=== PATIENT | female | born 1945 | race Caucasian/White ===

== ENCOUNTER 2019-08-03 07:39 | Day surgery (SDC) | payer MEDICARE, SELFPAY ==
--- NOTE | 2019-07-30 19:00 | PCM.HP.BLA ---
History and Physical Date of Admission: 08/03/19 Me[facility] Cortes 1945 ? ? REFERRING PHYSICIAN: Ольга Hernandez MD ? CHIEF COMPLAINT: New finding of right breast cancer ? HPI: The patient is a 73 year old female presents new diagnosis of right breast cancer. She was found to have abnormal right breast radiographs. She denies palpable breast masses Mother had breast cancer at age 72, then developed another breast cancer years later, still alive Paternal grandmother had breast cancer There is no ovarian cancer in family known She denies previous breast biopsies. She admits that she does not do SBE Denies pain Denies nipple discharge. ? Mammograms 07/14/19 IMPRESSION: INCOMPLETE: NEEDS ADDITIONAL IMAGING EVALUATION The nodule in the right breast lower outer aspect posterior depth is indeterminate. ?An ultrasound is recommended. The asymmetry in the right breast central to the nipple middle depth is indeterminate ? US 07/14/19 There is a benign normal lymph node in the right axilla. IMPRESSION: HIGHLY SUGGESTIVE OF MALIGNANCY - APPROPRIATE ACTION SHOULD BE TAKEN The 1.2 cm x 0.9 cm lesion in the right breast is highly suggestive of malignancy. ?An ultrasound guided biopsy is recommended ? US right breast needle core biopsy 07/14/19 Right breast, ultrasound-guided mammotome biopsy - Invasive mammary carcinoma, provisional histologic grade 2. Estrogen Receptor (ER) ? ?Positive (>95%) Progesterone Receptor (PgR) ? ?Positive (>95%) HER2 (ERBB2) IMMUNOHISTOCHEMISTRY ASSAY Interpretation: NEGATIVE for HER2 (ERBB2) Expression? ? ? PAST MEDICAL HISTORY Diverticulosis of colon (without mention of hemorrhage) ? Osteoporosis, unspecified ? Scoliosis ? Unspecified essential hypertension ? white coat HTN past several years; no meds needed ? PAST SURGICAL HISTORY COLONOSCOP W/ OR W/O BRSH SPEC ? 03/16/2009 COLONOSCOP W/ OR W/O BRSH SPEC ? 05/25/2019 PAST SURGICAL HISTORY OF ? 11/29/1995 ? endometrial biopsy PAST SURGICAL HISTORY OF ? 11/29/1999 ? Rectal prolapse repair--laparoscopic Wells Repair (Dr. Hahn) PAST SURGICAL HISTORY OF ? 07/21/2014 ? Robotic laparoscopic ventral rectopexy that was converted to an open procedure with lysis of adhesions, small bowel resection, and suture rectopexy via open technique TONSILLECTOMY HX ? PAST INJURIES Denies head injuries, denies history of fractures ? ? Current Outpatient Medications: lisinopril (ZESTRIL, PRINIVIL) 5 mg tablet Take 1 tablet by mouth once daily. atorvastatin (LIPITOR) 10 mg tablet Take 1 tablet by mouth daily at bedtime. For cholesterol. ergocalciferol(VITAMIN D 400 UNIT TAB) Take one(1) tablet daily. CALCIUM 600 + D(3) 600 MG-200 UNIT TAB Take one(1) tablet two(2) times daily. ? ? ALLERGIES: Patient has no known allergies. ? PERSONAL HISTORY: Social History Socioeconomic History Marital status: Spouse name: Stuart Number of children: 2 Occupational History Occupation: TEACHER retired Employer: [employer] Denies TOB use FAMILY HISTORY ? Hypertension Father ? ? Cancer Father ?? colon ? Breast Cancer Mother ? ? ? REVIEW OF SYSTEMS: General - denies fevers, denies anorexia, denies weight loss Cardiovascular - denies chest pain, denies history of PR Pulmonary - denies shortness of breath, denies coughing up blood Gastrointestinal - denies abdominal pain, denies hematemesis, denies blood in stools Neurological - denies seizures, denies chronic numbness/weakness of extremities, denies chronic headaches Genitourinary - denies burning with urination, denies blood in urine Hematological - denies spontaneous/prolonged bleeding, had blood transfusions after delivery Skin - denies nonhealing skin wounds Musculoskeletal - has occasional low back pain Endocrine - denies diabetes, no thyroid problems Psychological ? denies hallucinations Obstetrical: menarche age 13, , first age 28, denies breast feeding, BCP use age 22 for about 8 y, tubes tied, menoapuse age 50, denies HRT use ? PHYSICAL EXAMINATION: General: The patient is 73 year old female, well nourished, well hydrated in no acute distress. The patient is oriented to time, place, and person. VITALS: Blood pressure 134/78, pulse 110, temperature 36.7 ?C (98 ?F), weight 56.3 kg (124 lb 3.2 oz), SpO2 99 %. Body mass index is 24.46 kg/m?. Head ? Normocephalic. EOM intact with sclera clear and no icterus noted. Wearing glasses. Mouth with mucus membranes moist. Neck - supple with no jugular venous distention noted. Trachea is midline. No carotid bruits noted. No thyroid enlargement or thyroid nodules detected. No masses noted. Chest/breast ? no asymmetry of breasts noted, no suspicious skin lesions noted - healed biopsy site with no evidence of infection - slight ecchymoses in area, no nipple discharge and both nipples everted, no breast masses noted Lungs ? clear to auscultation. Normal breath sounds. No rales/rhonchi/wheezing noted. No labored breathing noted, such as retractions. No cough heard. Heart ? normal S1 and S2 auscultated. No rubs/clicks/murmurs noted. Regular rate. Abdomen ? soft and benign. Normal bowel sounds No abdominal bruits noted. Extremities ? no calf tenderness noted. No pitting edema noted. Skin ? normal skin integrity. Lymph ? no cervical adenopathy detected, no supraclavicular adenopathy detected, no axillary adenopathy detected Neurological ? gait normal, no focal deficits noted Psych ? calm and appropriate RADIOLOGIC STUDIES: As Noted ? ? IMPRESSION: newly diagnosed right breast cancer ? PLAN: I have discussed the above with the patient and her who is present with her I have explained treatment of breast cancer - surgical and briefly chemo- and radiation therapy. I have offered options for surgical treatment - lumpectomy (followed by radiation therapy) or mastectomy. I have also explained need for sentinel lymph node biopsy via radioactive and blue dye. I have given the patient options for initial surgical treatment. I have told the patient the risks of surgery, including but not limited to: infection, bleeding, scar tissue, seroma and persistent seroma, lymph leak, injury to any blood vessels, injury to any nerves (particularly the long thoracic, the thoracodorsal, and the second intercostal brachial and the resultant sequelae), lymphedema, cosmetic deformity, dysthesias, wound infections, further surgery (especially if margins are not clear), complications of anesthesia, etc. ? the patient understands. The patient wishes to proceed with right breast lumpectomy. Will also undergo right axillary sentinel lymph node biopsy I have answered all the patient?s questions at this point to her satisfaction and she has no further questions. Return to Clinic: The patient is instructed to follow-up with me after the procedure.
--- NOTE | 2019-08-03 | IMM_PTH ---
PATIENT: CAROLYN WEST LOC: [facility] [place] U#:[id number] AGE/SX: 73/F ROOM: RE08/03/[address]: Dr. Flaca Cleveland MD : 1945 BED: DIS: 08/03/2019 SPEC #: [id number] RECD: 08/05/19 12:38 STATUS: SOUNanda REQ #: [id number] CRISTÓBAL: 08/03/19 00:[address]: Flaca Cleveland DEPT: IMMUNOHISTOCHEMISTRY RECD BY: Ya Talbert ENTERED: 08/05/19 12:40 SP TYPE: IMMUNO OTHR DR: Dr. Ольга Hernandez MD Tissues: A - Axillary lymph node, NOS B - Right breast, NOS Procedures: Synapto (add) CK8 (initial) E-CAD (initial) CD56 (add) CHROMO (add) CK8 (add) Pankeratin (add) NSE (add) PHYSICIAN & INSTITUTION [place] [id number] SPECIMEN INFORMATION: Tissue Source: A - Right axillary sentinel lymph node, B - Right breast Clinical Info: Right breast cancer Specimen Number: [id number] A1, A2, B8 CPT code: 05691 x2, 55495 x7 METHODOLOGY: Deparaffinized sections of prefer/formalin-fixed tissue or PAP/DQ stained slides are incubated with monoclonal/polyclonal antibodies/oligonucleotide probes. Localization is made via biotin free immunoperoxidase method. Appropriate controls are performed and reacted as expected. Results on target cell population are indicated in the following table: RESULTS: ANTIBODY / CLONE RESULT Block A1 CK8 (50cvdkL76) negative AE1-3 (AE1/AE3/PCK26) negative Block A2 CK8 (12hjlbM68) negative AE1-3 (AE1/AE3/PCK26) negative Block B8 E-Cad (ECH-6) positive NSE Neuron Specific Enolase positive Chromo (LK2H10) negative CD56 (123C3.D5) negative Synapto (polyclonal) negative These tests were developed and their performance characteristics determined by [facility]. They may not have been cleared or approved by the U.S. Food and Drug Administration. The FDA has determined that such clearance or approval is not necessary. The above immunohistochemical/dualISH markers are ordered and reviewed by the Pathologist. INTERPRETATION: A. Right axillary sentinel lymph nodes, biopsy: Five out of five lymph nodes negative for carcinoma. B. Right breast, lumpectomy: Invasive ductal carcinoma. AM:raj 08/06/19 Case has been reviewed in consultation with Dr. June who concurs with the above diagnosis. IDC:SJ
--- NOTE | 2019-08-03 | AXNB_PTH ---
PATIENT: CAROLYN WEST LOC: [facility] [place] U#:[id number] AGE/SX: 73/F ROOM: RE08/03/[address]: Dr. Flaca Cleveland MD : 1945 BED: DIS: 08/03/2019 SPEC #: [id number] RECD: 08/03/19 11:28 STATUS: NORTH REQ #: [id number] CRISTÓBAL: 08/03/19 00:[address]: Flaca Cleveland DEPT: SURGICAL PATHOLOGY RECD BY: Ya Talbert ENTERED: 08/03/19 12:13 SP TYPE: AX NODE BX OTHR DR: Dr. Ольга Hernandez MD Tissues: A - Axillary lymph node, NOS B - Right breast, NOS Procedures: Frozen Section (charge) Frozen Section Add'l ([facility]) Surgery Specimen Level V Surgery Specimen Level HEADER OPERATION: Right breast lumpectomy via wire localization, sentinel lymph node biopsy PRE-OP DIAGNOSIS: Right breast cancer TISSUE SUBMITTED: A - Right breast sentinel lymph node sent at 1119, B - Right breast lumpectomy with wire, short suture - superior, long suture - lateral, two short sutures - posterior FROZEN SECTION DIAGNOSIS A. Right axillary sentinel lymph nodes, biopsy: Four out of four lymph nodes negative for carcinoma. AM:raj 08/03/19 MICROSCOPIC DIAGNOSIS A. Right axillary sentinel lymph nodes, biopsy: Five out of five lymph nodes negative for carcinoma. B. Right breast, lumpectomy: Invasive ductal carcinoma. See cancer checklist below. AM:raj 08/05/19 COMMENT INVASIVE BREAST CANCER SUMMARY: Specimen: Partial breast Procedure: Excision with wire guidance Specimen integrity: Single intact specimen. Specimen size: 7 x 7 x 2 cm Specimen laterality: Right Tumor size: 1.5 x 1 x 1 cm Tumor focality: Single focus of invasive carcinoma Macroscopic and Microscopic extent of tumor: Skin: Not present Nipple: Not present Skeletal muscle: Not present Histologic type of invasive carcinoma: Invasive ductal carcinoma Histologic Grade (B[place]iv[place] grade): Glandular/tubular differentiation score: 3 Nuclear pleomorphism score: 3 Mitotic count score: 1 Overall grade: Grade 2 (total score of 7) Margins: Uninvolved by invasive carcinoma. Distance from closest (inferior) margin - 5 mm Lymph-Vascular invasion: Not identified Dermal lymph-vascular invasion: Not applicable Ductal carcinoma in situ (DCIS): Not present Lobular carcinoma in situ (LCIS): Not present Lymph nodes: Number of sentinel lymph nodes examined: 5 Total number of lymph nodes examined (sentinel and nonsentinel): 5 No evidence of macrometastases, micrometastases or isolated tumor cells. See specimen A. Microcalcifications: Present in neoplastic tissue. Treatment effect: Unknown Additional pathologic findings: Changes consistent with previous biopsy site and focal usual intraductal hyperplasia without atypia. Ancillary studies: Previously performed on same tumor ([id number] [facility]) ER: positive (>95%) AR: positive (>95%) Her2 tamiko: Negative (IHC) Her2 by dual TREY: Not performed PATHOLOGIC STAGE: pT1c N0 Mx The above summary is in compliance with [employer] (CAP) Cancer Protocols Checklist and [place] Joint Committee on Cancer (AJCC), Staging Manual, 8th Ed. Case has been reviewed in consultation with Dr. June who concurs with the above diagnosis. IDC:SJ MICROSCOPIC DESCRIPTION Slides are reviewed. GROSS DESCRIPTION A - Received fresh for frozen section diagnosis labeled with the patient's name is a specimen designated right breast sentinel lymph node. The specimen consists of two pieces of yellow adipose tissue measuring in aggregate 4 x 3 x 0.7 cm. Five nodules, possible lymph nodes are identified measuring 0.2 to 2 cm in greatest dimension. The lymph nodes are submitted in entirety in two cassettes for frozen section diagnosis as follows: 1 - one lymph node bisected, 2 - four possible lymph nodes. / AM:raj 08/03/19 B - Received fresh for intraoperative consultation labeled with the patient's name and designated right breast lumpectomy with wire. The specimen consists of a piece of fibroadipose tissue with needle localization measuring 7 x 7 x 2 cm. The specimen is oriented by suture as follows: short suture - superior, long suture - lateral, two short sutures - posterior. The specimen is inked as follows: anterior - yellow, posterior - black, superior - blue, inferior - green, medial - red and lateral - orange. Serial sections reveal a dennis, indurated mass measuring 1.5 x 1 x 1 cm. This mass is 0.5 cm away from the closest inferior margin. This information is conveyed to the surgeon intraoperatively. Sections of the rest of the specimen reveal dennis-yellow adipose cut surfaces mixed with dennis-white fibrous areas. Scientific Research Associate sections are submitted in 12 cassettes as follows: 1 - perpendicular anterior, posterior and inferior margins, 2 - perpendicular medial, lateral and superior margins, 3-6 - entire tumor, 7-9 - provider service representative sections adjacent to the tumor, 10 - provider service representative section away from the tumor. / SJ:raj 08/04/19 TC:0 CPT: 68074, 59692, 78874, 29442, 86964
--- NOTE | 2019-08-03 08:00 | NM_ITS ---
PROCEDURE: NUCLEAR MEDICINE Injection [place] Node - RIGHT breast(s). REASON FOR EXAM: Female, 73 years old. Right breast cancer. TECHNIQUE: [place] node localization using radionuclide methods of the RIGHT breast(s) was performed following subcutaneous administration of 1.1 mCi of of sulfur colloid Tc-99m. FINDINGS: 1.1 mCi of technetium labeled sulfur colloid was injected subcutaneously in 4 equal aliquots at the biopsy site. NM/Lymph Node Injection Only IMPRESSION: Subcutaneous injection of 1.1 mCi of technetium labeled sulfur colloid for sentinel node imaging. Electronically Signed: Feliberto Mcdonald, at 8:43 EDT , Service support ,
[2019-08-03 08:16] VITALS: BP 168/89; PULSE 73; RESP 18; TEMP 37.1; O2SAT 95; BMI 23.6
[2019-08-03] MEDS: Lactated Ringers 1,000 ML 75 ML IV ×2 (08:48→13:09)
--- NOTE | 2019-08-03 09:00 | BI_ITS ---
SURGICAL BREAST SPECIMEN RADIOGRAPH CLINICAL: Document presence of calcifications in biopsy specimen. FINDINGS: Specimen shows presence of calcifications. Electronically Signed: Feliberto Mcdonald, at 12:54 EDT , Service support , BI/Breast Biopsy Specimen
[2019-08-03] MEDS: Cefazolin 2 GM in 0.9% Normal Saline 100 ML IV (10:19)
--- NOTE | 2019-08-03 10:28 | DCINST_ITS ---
Discharge Diet: No Restrictions Discharge Activity: Return to Normal Activity, May not drive while taking narcotic pain medications. Lifting Restrictions: no lifting with right upper extremity greater than 10 pounds for 4 weeks Call your doctor if your incision/area has: Continuous Slow Oozing, Foul Smelling Discharge Call your doctor if you observe: Fever of 101 or Higher Additional Dressing/Incision Instructions:: Leave dressings in place. May get wet in shower. Do not soak - no tub baths/swimming. Wear supportive bra during the day. may apply ice to area for comfort Allergies/Adverse Reactions: Allergies No Known Allergies Allergy (Verified 07/27/19 13:53) Medications to take at Discharge Atorvastatin Calcium [Lipitor] 10 mg PO QHS 07/27/19 Calcium Carbonate/Vitamin D3 [Calcium 600 + Vit D Tablet] 1 ea PO BID 07/27/19 Cholecalciferol (Vitamin D3) [Vitamin D3] 1,000 unit PO DAILY 07/27/19 Lisinopril 5 mg PO DAILY 07/27/19 Hydrocodone Bitart/Apap 5-325 [[place] 5MG-325MG] 1 tab PO Q8H PRN PRN 5 Days #15 tab 08/03/19 Multivit-Min/Iron/Folic/Lutein [Multivitamin Women 50 Plus Tab] 1 ea PO DAILY 08/03/19 The following prescriptions were given: Hydrocodone Bitart/Apap 5-325 [[place] 5MG-325MG] 1 tab PO Q8H PRN PRN 5 Days #15 tab PRN Reason: Pain Prescription Printed Primary Care Physician: Ольга Hernandez MD [Primary Care Provider] - Please Follow Up With: Flaca Cleveland MD - call When: to be seen in 5-7 days, please call for date and time, thank you
--- NOTE | 2019-08-03 10:31 | OP.PCM_ITS ---
Report of Operation Date of Procedure: 08/03/19 Pre-Operative Diagnosis: right breast cancer Post-Operative Diagnosis: right breast cancer - central location Surgery/Procedure Performed:: right breast lumpectomy via wire localization and right axillary sentinel lymph node biopsy via blue dye and radioisotope localization Description of Surgical Findings:: lymph nodes - right axillary - 4 out of 4 negative regasification plant operator: Nohemy Maguire Type of Anesthesia:: General Anesthesiologist: Tristan Betts Specimen's removed: right breast tissue, right axillary sentinel lymph node Drains: none Estimated Blood Loss (mL): 10 ml Fluids Replaced: 700 ml RL Description of Procedure: After informed consent was given, the patient was brought into the Breast Stereotactic Radiology suite. Appropriate time out protocol was followed. She was then placed in the prone position on the [place] stereotactic table. The patient?s right breast was placed in the opening at the head of the table. A voip network technician compression mammogram was then obtained in the CC view. The marker clip that was previously placed was identified. Stereo pictures of the lesion were then taken for XYZ coordinates. The Kopans needle was then positioned where it would be entering into the patient?s breast. The skin at this site was then cleansed with a surgical skin preparation. The skin and subcutaneous tissues at this site were then infiltrated with 1% xylocaine. The Kopans needle was then positioned into the patient?s breast at the proper coordinates of depth. A voip network technician film was obtained which revealed the wire in proper position. The patient was then placed in the supine position and the wire was taped into place. A unilateral mammogram in the CC and MLO view were then taken for use in the OR. The patient tolerated this portion of the procedure well and was brought to the AC awaiting surgery in the OR. The patient was then brought to the Operating Room. Appropriate time out protocol was followed. She was then placed on the operating table in the supine position. A wire had already been placed in the stereotactic biopsy room in the radiology department as described above. The rightt breast with the wire in placed was then prepped with a sterile surgical skin preparation and sterile surgical drapes were placed. 1 cc of lymphozurin diluted 50-50 with normal saline was then injected into the periareolar area and around the biopsy cavity with a 25 g needle. Gentle massage was then done for a few minutes. A skin incision was made in the inferior portion of the hair bearing area of the right axilla. This was after the area was infiltrated with 0.25% marcaine with epinephrine. It was carried through to the subcutaneous tissues using electrocautery. Any hemorrhage was controlled with electrocautery. A Weitlaner retractor was used for increased operative exposure. The Neoprobe was brought into the operative field in a sterile sheath. 10 second count over the tumor site was 275. 10 second count over a neutral position was 0. The blue lymphatic vessels were then followed by blunt dissection until blue colored lymph nodes were identified. This tissue was from the surrounding tissue by blunt dissection and the vascular pedicles ligated with vicryl suture. 10 second count of the tissue was 14. The lymph tissue then forwarded to pathology for frozen section. Pathology revealed 4 out of 4 lymph nodes negative for breast cancer. 10 second count of the axilla was 0 after removal of the blue lymph tissue. Hemostasis was achieved by electrocautery. Keira was applied to the area. The deep tissues were reapproximated using 2-0 vicryl suture. The skin edges were reapproximated with 3-0 vicryl suture in a horizontal mattress fashion and then further closed with running 4-0 monocryl in a subcuticular fashion. The next part of the surgery was the breast lumpectomy. The skin and subcutaneous tissues at the site of the breast lesion was then infiltrated with 0.25% marcaine with epinephrine. A transverse incision that extended to a upper outer quadrant circumareolar incision was made with a 15 blade scalpel. It was carried down through to the subcutaneous tissues. Laterally, it incorporated the original biopsy site. Hemostasis was controlled with electrocautery. The wire was then palpated out and brought into the wound from outside. The breast tissue surrounding the wire was then carefully pal pated out and from the surrounding tissues using electrocautery. The breast tissue, once from the breast, was then forwarded to the radiology department, where a specimen mammogram revealed that the lesion was within the specimen. The breast tissue was then forwarded to pathology for analysis. Pathology review revealed that the closest margin was inferior with a measurement of 5mm. The wound cavity was carefully examined. Of noted, this was a centrally located breast cancer. No further suspicious tissue was palpated or visualized. Hemostasis was carefully controlled with electrocautery. The subdermal tissues were then approximated with vicryl suture. The incision was then reapproximated close using running monocryl suture. Cavilon and steristrips were then placed to reinforce the skin closure. A sterile dressing was then applied. The patient was then brought to the Recovery Room in stable condition. - Complications none noted - Admit VTE Documentation VTE Present on Admission: Yes VTE Mechan Device Prophylaxis: SCD's
[2019-08-03] MEDS: 0.9% Normal Saline (Pres. free 10 ML Vial (11:00)
[2019-08-03] MEDS: Isosulfan Blue 1% 5 ML Vial (11:00)
[2019-08-03 13:00] VITALS: BP 142/89; BP 168/89; PULSE 85; RESP 16; TEMP 36.2; O2SAT 97
[2019-08-03 13:15] VITALS: BP 134/68; BP 168/89; PULSE 77; RESP 16; O2SAT 95
[2019-08-03 13:30] VITALS: BP 129/79; BP 168/89; PULSE 76; RESP 16; O2SAT 95
[2019-08-03 13:45] VITALS: BP 135/79; BP 168/89; PULSE 76; RESP 16; TEMP 36.1; O2SAT 97
[2019-08-03 14:43] VITALS: BP 132/79; BP 168/89; PULSE 77; RESP 16; TEMP 36.2; O2SAT 96
== END 2019-08-03 14:45 | disposition home or self-care (01) ==
LOC: SDC 07:41 → AC 07:44
PROVIDERS: Family Provider Internal Medicine; PCP Internal Medicine; Referring Provider Surgery; Visit Provider Surgery
PROC: (CPT 19301; principal; 2019-08-03 10:15)
DX: C50.111 Malignant neoplasm of central portion of right female breast (principal); I10 Essential (primary) hypertension; E78.00 Pure hypercholesterolemia, unspecified; M41.9 Scoliosis, unspecified; Z79.899 Other long term (current) drug therapy; Z80.3 Family history of malignant neoplasm of breast
CPT/HCPCS: 19301; 38525; 19281; 38792; 76098; 88305; 88307; 88309; 88331; 88332; 88341; 88342; A9541; J7120; J2405; J3490; Q9968